=== PATIENT | male | born 1985 | race Caucasian/White ===

== ENCOUNTER 2018-03-30 03:11 | Emergency (ER) | payer SELFPAY ==
[2018-03-30 03:40] LABS: Absolute Lymphocytes (CBC) 2.7 K/uL (0.7-4.9); Absolute Monocytes 0.7 K/uL (0.1-1.3); Absolute Neutrophil 5.2 K/uL (1.8-8.0); Basophils % 0.6 % (0-1.3); Eosinophils % 2.4 % (0-4.4); Hematocrit 50.7 % (39.6-49.0); Lymphocytes % 30.6 % (15.3-44.8); MCH 29.4 pg (27.0-35.0); MCV 87.7 fL (80-100); MPV 8.1 fL (7.6-11.3); Monocytes % 8.1 % (3.3-12.3); RBC Red Blood Cell Count 5.78 M/uL (4.33-5.43)
[2018-03-30 03:47] LABS: Protime INR 0.88
[2018-03-30 03:53] LABS: Bicarbonate 27 mEq/L (21-31); Glucose Level 98 mg/dL (65-120); Potassium 3.3 mEq/L (3.6-5.0); Sodium Level 140 mEq/L (135-145)
[2018-03-30] MEDS ORDERED: THIAMINE 200 MG/2 ML INJ ONE (03:55)
[2018-03-30] MEDS ORDERED: LORAZEPAM 0.5 MG TABLET ONE (03:55)
[2018-03-30] MEDS ORDERED: MULTIVITAMINS 10 ML VIAL (INJ) IV ONE (03:57)
[2018-03-30] MEDS ORDERED: FOLIC ACID 5 MG/ML VIAL ONE (03:58)
[2018-03-30 03:59] LABS: ALT/SGPT 113 IU/L (10-60); AST/SGOT 111 IU/L (10-42); Albumin 4.2 g/dL (3.2-5.5); Alkaline Phosphatase 44 IU/L (42-121); BUN Blood Urea Nitrogen 6 mg/dL (6-20); Bilirubin Direct 0.1 mg/dL (0-0.2); Bilirubin Total 0.6 mg/dL (0.3-1.2); Protein, Total 7.7 g/dL (6.0-8.3)
[2018-03-30] MEDS ORDERED: NA CHLORIDE 0.9% 1,000 ML ONE (03:59)
[2018-03-30 04:00] LABS: Alcohol Serum/Plasma 212 mg/dl
[2018-03-30 05:01] LABS: Salicylates Level < 4.0 mg/dl (<30)
[2018-03-30 05:06] LABS: Barbiturates NEGATIVE; Benzodiazepines POSITIVE; Cocaine NEGATIVE; METHAMPHETAM NEGATIVE; Opiates NEGATIVE; Phencyclidine NEGATIVE; THC Cannibis POSITIVE
[2018-03-30 05:16] LABS: Urine Blood TRACE (NEG); Urine Glucose NEGATIVE (NEG); Urine Protein NEGATIVE (NEG); Urine pH 6.5 (5.0-7.0)
--- NOTE | 2018-03-30 05:31 | EDPHYS ---
Physician Documentation [facility] Name: Tommy Barnett III Age: 32 yrs Sex: Male : 1985 Arrival Date: 03/30/2018 Time: 03:14 Bed 16 Private MD: ED Physician Kalpesh Wu HPI: 03/30 04:22 This 32 yrs old Male presents to ER via EMS with complaints of Alcohol tw4 Withdrawal. 04:22 pt states he feels shaky. Onset: The symptoms/episode began/occurred today. Severity of tw4 symptoms: At their worst the symptoms were moderate in the emergency department the symptoms are unchanged. The patient has not experienced similar symptoms in the past. Historical: - Allergies: 03:21 Phenergan; ak1 - Home Meds: 03:21 None [Active]; ak1 - PMHx: 03:21 None; ak1 - PSHx: 03:21 chest tube; ak1 - Immunization history:: Adult Immunizations unknown. - Social history:: Smoking status: Patient uses tobacco products, smokes one pack cigarettes per day. ROS: 04:22 Constitutional: Negative for fever, chills, and weight loss, Cardiovascular: Negative tw4 for chest pain, palpitations, and edema, Respiratory: Negative for shortness of breath, cough, wheezing, and pleuritic chest pain, Abdomen/GI: Negative for abdominal pain, nausea, vomiting, diarrhea, and constipation, Back: Negative for injury and pain, Neuro: Negative for headache, weakness, numbness, tingling, and seizure. 04:22 Psych: Positive for alcohol dependence. Exam: 04:23 Constitutional: This is a well developed, well nourished patient who is awake, alert, tw4 and in no acute distress. Head/Face: Normocephalic, atraumatic. Chest/axilla: Normal chest wall appearance and motion. Nontender with no deformity. No lesions are appreciated. Cardiovascular: Regular rate and rhythm with a normal S1 and S2. No gallops, murmurs, or rubs. Normal PMI, no JVD. No pulse deficits. Respiratory: Lungs have equal breath sounds bilaterally, clear to auscultation and percussion. No rales, rhonchi or wheezes noted. No increased work of breathing, no retractions or nasal flaring. Abdomen/GI: Soft, non-tender, with normal bowel sounds. No distension or tympany. No guarding or rebound. No evidence of tenderness throughout. MS/ Extremity: Pulses equal, no cyanosis. Neurovascular intact. Full, normal range of motion. Neuro: Awake and alert, GCS 15, oriented to person, place, time, and situation. Cranial nerves II-XII grossly intact. Motor strength 5/5 in all extremities. Sensory grossly intact. Cerebellar exam normal. Normal gait. Vital Signs: 03:15 BP 132 / 103; Pulse 126; Resp 20; Temp 98; Pulse Ox 96% on R/A; Weight 89.81 kg (R); ak1 Height 5 ft. 6 in. (167.64 cm) (R); Pain 0/10; 04:45 BP 118 / 81; Pulse 109; Resp 18; Pulse Ox 98% on R/A; ea 05:42 BP 119 / 73; Pulse 100; Resp 21; Temp 98.0(O); Pulse Ox 96% on R/A; Pain 0/10; ak1 06:27 BP 127 / 78; Pulse 100; Resp 18; Pulse Ox 98% on R/A; Pain 0/10; ea 03:15 Body Mass Index 31.96 (89.81 kg, 167.64 cm) ak1 MDM: 03:15 Patient medically screened. tw4 05:31 Differential Diagnosis altered mental status. Data reviewed: vital signs, nurses notes. tw4 Data interpreted: Pulse oximetry: Interpretation: normal. Counseling: I had a detailed discussion with the patient and/or guardian regarding: the historical points, exam findings, and any diagnostic results supporting the discharge/admit diagnosis. Medication response: IVF , thiamine folic acid. Response to treatment: the patient's symptoms have markedly improved after treatment, and as a result, I will discharge patient. Special discussion: I discussed with the patient/guardian in detail that at this point there is no indication for admission to the hospital. It is understood, however, that if the symptoms persist or worsen the patient needs to return immediately for re-evaluation. ED course: Pt appears well, nontoxic, no hallucinations or delirium. 03/30 03:16 Order name: Acetaminophen [facility] 03/30 04:30 Interpretation: Within normal limits: ACETA < 10.0. 03/30 03:16 Order name: Basic Metabolic Panel [facility] 03/30 04:30 Interpretation: Normal except: K 3.3. [facility] 03/30 03:16 Order name: CBC with Diff; Complete Time: 04:[address] [facility] 03/30 04:30 Interpretation: Normal except: RBC 5.78; PLT 140; HCT 50.7. 03/30 03:16 Order name: ETOH Level [facility] 03/30 03:16 Order name: Hepatic Function [facility] 03/30 04:31 Interpretation: Normal except: SGOT 111; SGPT 113. [facility] 03/30 03:16 Order name: PT-INR; Complete Time: 04:[address] [facility] 03/30 04:30 Interpretation: Within normal limits: PT 10.4. [facility] 03/30 03:16 Order name: Ptt, Activated; Complete Time: 04:[address] [facility] 03/30 03:16 Order name: Salicylate [facility] 03/30 03:16 Order name: Urine Drug Screen [facility] 03/30 03:16 Order name: EKG - Nurse/Tech; Complete Time: 04:[address] [facility] 03/30 03:16 Order name: IV Saline Lock; Complete Time: 04:[address] [facility] 03/30 04:10 Order name: Urine Dipstick--Ancillary (enter results) [facility] 03/30 03:16 Order name: Labs collected and sent; Complete Time: 04:[address] [facility] 03/30 03:16 Order name: Urine Dipstick-Ancillary (obtain specimen); Complete Time: 04:09 EC:30 Rate is 113 beats/min. Rhythm is regular. QRS [place] is Normal. AR interval is normal. tw4 QRS interval is normal. QT interval is normal. No Q waves. T waves are Normal. No ST changes noted. Clinical impression: Sinus tachycardia. Interpreted by me. Reviewed by me. Administered Medications: 04:00 Drug: Banana Bag - (NS 0.9% 1000 ml, foLIC Acid 1 mg, Thiamine 100 mg, Multivitamin 1 ea amp) Route: IV; Rate: calculated rate; Site: right antecubital; 06:26 Follow up: IV Status: Completed infusion ak1 04:00 Drug: Ativan 0.5 mg Route: PO; ea 05:33 Follow up: Response: No adverse reaction ak1 Disposition: 03/30/18 05:29 Discharged to Home. Impression: Alcohol dependence with withdrawal, uncomplicated, Alcohol abuse. - Condition is Stable. - Discharge Instructions: Alcohol and Drug Addiction, Finding Treatment, Alcohol Withdrawal, Alcohol Use Disorder, Alcohol Withdrawal, [id number]. - Prescriptions for Klonopin 0.5 mg Oral Tablet - take 1 tablet by ORAL route every 12 hours As needed; 10 tablet. - Medication Reconciliation Form, Thank You Letter, Antibiotic Education, Prescription Opioid Use form. - Follow up: Private Physician; When: As needed; Reason: Recheck today's complaints, Continuance of care, Re-evaluation by your physician. - Problem is new. - Symptoms have improved. Signatures: Dispatcher [employer] EDMS Jennifer Phan RN RN ak1 Aure Granger RN Kalpesh Gonzalez ea, MD MD tw4 Corrections: (The following items were deleted from the chart) 06:35 05:29 03/30/2018 05:29 Discharged to Home. Impression: Alcohol dependence with ea withdrawal, uncomplicated; Alcohol abuse. Condition is Stable. Forms are Medication Reconciliation Form, Thank You Letter, Antibiotic Education, Prescription Opioid Use. Follow up: Private Physician; When: As needed; Reason: Recheck today's complaints, Continuance of care, Re-evaluation by your physician. Problem is new. Symptoms have improved. tw4
--- NOTE | 2018-03-30 05:31 | ER ---
Nurse's Notes [facility] Name: Tommy Barnett III Age: 32 yrs Sex: Male : 1985 Arrival Date: 03/30/2018 Time: 03:14 Bed 16 Private MD: Diagnosis: Alcohol dependence with withdrawal, uncomplicated;Alcohol abuse Presentation: 03/30 03:15 Presenting complaint: Patient states: ETOH abuse, pt concerned about possible seizure ak1 due to his "jittery"since 0130. pt has 1 litter vodka tonight. pt with hx seizures that he does not take medication for. Transition of care: patient was not received from another setting of care. Onset of symptoms was March 30, 2018. Risk Assessment: Do you want to hurt yourself or someone else? Patient reports no desire to harm self or others. Initial Sepsis Screen: Does the patient meet any 2 criteria? No. Patient's initial sepsis screen is negative. Does the patient have a suspected source of infection? No. Patient's initial sepsis screen is negative. Care prior to arrival: None. 03:15 Method Of Arrival: EMS: [facility] ak1 03:15 Acuity: JOY 3 ak1 Triage Assessment: 03:21 General: Appears in no apparent distress. Behavior is cooperative, anxious, Smells of ak1 alcohol. Pain: Denies pain. EENT: No signs and/or symptoms were reported regarding the EENT system. Neuro: Level of Consciousness is awake, alert, obeys commands, Oriented to person, place, time, situation. Cardiovascular: Rhythm is sinus tachycardia. Respiratory: No deficits noted. GI: No signs and/or symptoms were reported involving the gastrointestinal system. : No signs and/or symptoms were reported regarding the genitourinary system. Derm: No signs and/or symptoms reported regarding the dermatologic system. Musculoskeletal: No signs and/or symptoms reported regarding the musculoskeletal system. Historical: - Allergies: 03:21 Phenergan; ak1 - Home Meds: 03:21 None [Active]; ak1 - PMHx: 03:21 None; ak1 - PSHx: 03:21 chest tube; ak1 - Immunization history:: Adult Immunizations unknown. - Social history:: Smoking status: Patient uses tobacco products, smokes one pack cigarettes per day. Screenin:23 Abuse screen: Denies threats or abuse. Denies injuries from another. Nutritional ak1 screening: No deficits noted. Tuberculosis screening: No symptoms or risk factors identified. Fall Risk None identified. Assessment: 04:59 Reassessment: Patient and/or family updated on plan of care and expected duration. Pain ea level reassessed. Patient is alert, oriented x 3, equal unlabored respirations, skin warm/dry/pink. 05:43 Reassessment: Patient appears in no apparent distress at this time. Patient and/or ak1 family updated on plan of care and expected duration. Pain level reassessed. Patient is alert, oriented x 3, equal unlabored respirations, skin warm/dry/pink. no seizure activity noted while in ER16. Patient denies pain at this time. Patient states feeling better. 06:29 Reassessment: Patient and/or family updated on plan of care and expected duration. Pain ea level reassessed. Patient is alert, oriented x 3, equal unlabored respirations, skin warm/dry/pink. Discharge instruction given to patient, verbalized the understanding of instruction. Patient denies pain at this time. Patient states feeling better. 06:32 Reassessment: Patient is alert, oriented x 3, equal unlabored respirations, skin ea warm/dry/pink. Pt waiting for ride. Vital Signs: 03:15 BP 132 / 103; Pulse 126; Resp 20; Temp 98; Pulse Ox 96% on R/A; Weight 89.81 kg (R); ak1 Height 5 ft. 6 in. (167.64 cm) (R); Pain 0/10; 04:45 BP 118 / 81; Pulse 109; Resp 18; Pulse Ox 98% on R/A; ea 05:42 BP 119 / 73; Pulse 100; Resp 21; Temp 98.0(O); Pulse Ox 96% on R/A; Pain 0/10; ak1 06:27 BP 127 / 78; Pulse 100; Resp 18; Pulse Ox 98% on R/A; Pain 0/10; ea 03:15 Body Mass Index 31.96 (89.81 kg, 167.64 cm) ak1 ED Course: 03:14 Patient arrived in ED. ak1 03:15 Kalpesh Wu MD is Attending Physician. tw4 03:15 Arm band placed on Patient placed in an exam room, on a stretcher, on ekg monitor tech, ak1 on pulse oximetry, Patient notified of wait time. 03:18 Aure Granger, RN is Primary Nurse. ea 03:19 Triage completed. ak1 03:23 Patient has correct armband on for positive identification. Bed in low position. Call ak1 light in reach. Side rails up X 1. monitoring engineer on. Pulse ox on. NIBP on. 03:30 Inserted saline lock: 18 gauge in right antecubital area, using aseptic technique. ea Blood collected. 05:32 No provider procedures requiring assistance completed. ak1 06:30 IV discontinued, intact, bleeding controlled, No redness/swelling at site. Pressure ea dressing applied. Administered Medications: 04:00 Drug: Banana Bag - (NS 0.9% 1000 ml, foLIC Acid 1 mg, Thiamine 100 mg, Multivitamin 1 ea amp) Route: IV; Rate: calculated rate; Site: right antecubital; 06:26 Follow up: IV Status: Completed infusion ak1 04:00 Drug: Ativan 0.5 mg Route: PO; ea 05:33 Follow up: Response: No adverse reaction ak1 Outcome: 05:29 Discharge ordered by . tw4 05:43 Condition: stable ak1 06:30 Discharge instructions given to patient, Instructed on discharge instructions, follow ea up and referral plans. medication usage, Demonstrated understanding of instructions, follow-up care, medications, Prescriptions given X 1. 06:35 Patient left the ED. ea Signatures: Jennifer Phan RN SERGEY ak1 Aure Granger, RN Kalepsh Gonzalez ea, MD MD tw4
[2018-03-30 06:42] VITALS: TEMP 98
[2018-03-30 06:44] VITALS: BP 127/78; O2SAT 98
--- NOTE | 2018-03-30 12:28 | EKG ---
Test Date: 2018-03-30 Test Time: 04:17:55 Surtass Analyst: RAGHAVENDRA MEASUREMENT RESULTS: Intervals: Rate: 113 WI: 136 QRSD: 82 QT: 342 QTc: 469 [place]: P: 63 WI: 136 QRS: -30 T: 28 INTERPRETIVE STATEMENTS: Sinus tachycardia Left axis deviation Abnormal ECG Compared to ECG 03/30/2018 04:17:29 Left ventricular hypertrophy no longer present Electronically Signed On 03-30-18 12:27:41 CDT by Jack Heller
--- NOTE | 2018-03-30 12:28 | EKG ---
Test Date: 2018-03-30 Test Time: 04:17:29 Soda Flaker: RAGHAVENDRA MEASUREMENT RESULTS: Intervals: Rate: 113 NV: 150 QRSD: 82 QT: 338 QTc: 463 [place]: P: 59 NV: 150 QRS: -31 T: 25 INTERPRETIVE STATEMENTS: Sinus tachycardia Left axis deviation Minimal voltage criteria for LVH, may be normal variant Abnormal ECG Compared to ECG 03/30/2018 04:15:55 Left ventricular hypertrophy now present Electronically Signed On 03-30-18 12:27:45 CDT by Jack Heller
--- NOTE | 2018-03-30 12:28 | EKG ---
Test Date: 2018-03-30 Test Time: 04:15:55 Graduate Teaching Associate: RAGHAVENDRA MEASUREMENT RESULTS: Intervals: Rate: 112 CO: 132 QRSD: 82 QT: 342 QTc: 466 [place]: P: 62 CO: 132 QRS: -31 T: 29 INTERPRETIVE STATEMENTS: Sinus tachycardia Left axis deviation Abnormal ECG Compared to ECG 02/05/2003 12:33:00 Left-axis deviation now present Electronically Signed On 03-30-18 12:27:47 CDT by Jack Heller
== END 2018-03-30 06:35 | disposition home or self-care (01) ==
LOC: ER 03:11
DX: F10.230 Alcohol dependence with withdrawal, uncomplicated (principal); F17.210 Nicotine dependence, cigarettes, uncomplicated; Z88.8 Allergy status to other drugs, medicaments and biological substances
CPT/HCPCS: 36415; 80048; 80076; 80307; 80320; 80329; 81003; 85025; 85610; 85730; 93005; 96365; 96366; 99284; J3411; J7030

== ENCOUNTER 2019-02-03 20:24 | Emergency (ER) | payer SELFPAY ==
[2019-02-03] MEDS ORDERED: NA CHLORIDE 0.9% 1,000 ML ONE (22:13)
[2019-02-03] MEDS ORDERED: LORazepam 2 MG/ML VIAL ONE (22:13)
--- NOTE | 2019-02-04 00:08 | EDPHYS ---
Physician Documentation [facility] Name: Tommy Barnett III Age: 33 yrs Sex: Male : 1985 Arrival Date: 02/03/2019 Time: 20:27 Bed 15 Private MD: ED Physician Gregory Arguelles HPI: 02/04 00:03 This 33 yrs old Male presents to ER via Ambulatory with complaints of Alcohol gs Withdrawal. 00:03 Onset: The symptoms/episode began/occurred today. Associated signs and symptoms: gs Pertinent negatives: chest pain, fever, hallucinations, suicide ideation. Severity of symptoms: At their worst the symptoms were moderate in the emergency department the symptoms are unchanged. The patient has experienced similar episodes in the past, a few times. 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 - Social history:: Smoking status: Patient uses tobacco products, denies chronic smoking, but will smoke occasionally, Patient uses alcohol, patient/guardian reports recent binge of alcohol consumption. - Ebola Screening: : No symptoms or risks identified at this time. ROS: 02/04 00:03 All other systems are negative. gs Exam: 00:03 Head/Face: Normocephalic, atraumatic. Eyes: Pupils equal round and reactive to light, gs extra-ocular motions intact. Lids and lashes normal. Conjunctiva and sclera are non-icteric and not injected. Cornea within normal limits. Periorbital areas with no swelling, redness, or edema. ENT: Nares patent. No nasal discharge, no septal abnormalities noted. Tympanic membranes are normal and external auditory canals are clear. Oropharynx with no redness, swelling, or masses, exudates, or evidence of obstruction, uvula midline. Mucous membranes moist. Neck: Trachea midline, no thyromegaly or masses palpated, and no cervical lymphadenopathy. Supple, full range of motion without nuchal rigidity, or vertebral point tenderness. No Meningismus. Chest/axilla: Normal chest wall appearance and motion. Nontender with no deformity. No lesions are appreciated. Respiratory: Lungs have equal breath sounds bilaterally, clear to auscultation and percussion. No rales, rhonchi or wheezes noted. No increased work of breathing, no retractions or nasal flaring. Abdomen/GI: Soft, non-tender, with normal bowel sounds. No distension or tympany. No guarding or rebound. No evidence of tenderness throughout. Skin: Warm, dry with normal turgor. Normal color with no rashes, no lesions, and no evidence of cellulitis. MS/ Extremity: Pulses equal, no cyanosis. Neurovascular intact. Full, normal range of motion. Neuro: Awake and alert, GCS 15, oriented to person, place, time, and situation. Cranial nerves II-XII grossly intact. Motor strength 5/5 in all extremities. Sensory grossly intact. Cerebellar exam normal. Normal gait. 00:03 Back: No spinal tenderness. No costovertebral tenderness. Full range of motion. 00:03 Constitutional: The patient appears alert, awake, uncomfortable. 00:03 Cardiovascular: Rate: tachycardic, Rhythm: regular, Pulses: no pulse deficits are appreciated. Vital Signs: 02/03 20:42 BP 147 / 96; Pulse 140; Resp 18; Temp 99(O); Pulse Ox 96% on R/A; Weight 88.45 kg; lp1 Height 5 ft. 6 in. (167.64 cm); Pain 4/10; 21:31 BP 117 / 88; Pulse 131; Resp 22; Pulse Ox 97% on R/A; mt 22:30 BP 115 / 54; Pulse 115; Resp 16 S; Pulse Ox 97% on R/A; cc3 23:30 BP 114 / 69; Pulse 111; Resp 18 S; Pulse Ox 99% on R/A; cc3 02/04 00:00 BP 105 / 64; Pulse 111; Resp 20 S; Pulse Ox 96% on R/A; cc3 02/03 20:42 Body Mass Index 31.47 (88.45 kg, 167.64 cm) lp1 MDM: 02/03 21:51 Patient medically screened. gs 02/04 00:03 Data reviewed: vital signs, nurses notes. Response to treatment: the patient's symptoms gs have markedly improved after treatment, and as a result, I will discharge patient. Administered Medications: 02/03 22:00 Drug: NS 0.9% 1000 ml Route: IV; Rate: 1 bolus; Site: right antecubital; cc3 23:00 Follow up: Response: No adverse reaction; IV Status: Completed infusion; IV Intake: cc3 1000ml 22:02 Drug: Ativan 2 mg Route: IVP; Site: right antecubital; cc3 22:49 Follow up: Response: No adverse reaction; Anxiety decreased cc3 02/04 00:25 Drug: Valium 10 mg Route: PO; cc3 00:35 Follow up: Response: No adverse reaction cc3 Disposition: 02/04/19 00:06 Discharged to Home. Impression: Alcohol dependence with withdrawal. - Condition is Stable. - Discharge Instructions: Alcohol Withdrawal, [id number]. - Prescriptions for Valium 10 mg Oral Tablet - take 1 tablet by ORAL route every 12 hours As needed; 14 tablet. - Medication Reconciliation Form, Thank You Letter, Antibiotic Education, Prescription Opioid Use form. - Follow up: Private Physician; When: 2 - 3 days; Reason: Re-evaluation by your physician. Signatures: Dorita Henderson RN RN lp1 Gregory Arguelles MD MD Neva Maddox 3 Corrections: (The following items were deleted from the chart) 00:36 00:06 02/04/2019 00:06 Discharged to Home. Impression: Alcohol dependence with cc3 withdrawal. Condition is Stable. Forms are Medication Reconciliation Form, Thank You Letter, Antibiotic Education, Prescription Opioid Use. Follow up: Private Physician; When: 2 - 3 days; Reason: Re-evaluation by your physician.
--- NOTE | 2019-02-04 00:08 | ER ---
Nurse's Notes [facility] Name: Tommy Barnett III Age: 33 yrs Sex: Male : 1985 Arrival Date: 02/03/2019 Time: 20:27 Bed 15 Private MD: Diagnosis: Alcohol dependence with withdrawal Presentation: 02/03 20:40 Presenting complaint: Patient states: "I'm feeling very shaky, my whole insides feel lp1 like they're about to jump out"; Patient states he got kicked out of home and relapsed 3 weeks ago and has been drinking about a half gallon of Vodka a day; Last drank yesterday, 2 12 packs and a liter of Vodka. 20:40 Method Of Arrival: Ambulatory lp1 20:42 Transition of care: patient was not received from another setting of care. Onset of lp1 symptoms was February 03, 2019. Risk Assessment: Do you want to hurt yourself or someone else? Patient reports no desire to harm self or others. Initial Sepsis Screen: Does the patient meet any 2 criteria? No. Patient's initial sepsis screen is negative. Does the patient have a suspected source of infection? No. Patient's initial sepsis screen is negative. Care prior to arrival: None. 20:42 Acuity: JOY 2 lp1 Triage Assessment: 20:54 General: Appears in no apparent distress. uncomfortable, Behavior is cooperative, cc3 appropriate for age, anxious. Pain: Denies pain. EENT: No signs and/or symptoms were reported regarding the EENT system. Neuro: Level of Consciousness is awake, alert, obeys commands, Oriented to person, place, time, situation, Appropriate for age. Cardiovascular: Patient's skin is warm and dry. Respiratory: Airway is patent Respiratory effort is even, unlabored, Respiratory pattern is regular, symmetrical. GI: Abdomen is round non-distended. : No signs and/or symptoms were reported regarding the genitourinary system. Derm: No signs and/or symptoms reported regarding the dermatologic system. Musculoskeletal: Circulation, motion, and sensation intact. Range of motion: intact in all extremities. Historical: - Allergies: 20:44 Phenergan; lp1 - Home Meds: 20:44 Omeprazole Oral [Active]; lp1 - PMHx: 20:44 Non-hodgkins; lp1 - PSHx: 20:44 None; lp1 - Immunization history:: Adult Immunizations unknown. - Social history:: Smoking status: Patient uses tobacco products, denies chronic smoking, but will smoke occasionally, Patient uses alcohol, patient/guardian reports recent binge of alcohol consumption. - Ebola Screening: : No symptoms or risks identified at this time. Screenin:54 Abuse screen: Denies threats or abuse. Denies injuries from another. Nutritional cc3 screening: No deficits noted. Tuberculosis screening: No symptoms or risk factors identified. Fall Risk Ambulatory Aid- None/Bed Rest/Nurse Assist (0 pts). Gait- Normal/Bed Rest/Wheelchair (0 pts) Mental Status- Oriented to own ability (0 pts). Assessment: 20:54 General: see triage assessment. cc3 21:18 Reassessment: Patient appears in no apparent distress at this time. Patient and/or cc3 family updated on plan of care and expected duration. Pain level reassessed. Patient is alert, oriented x 3, equal unlabored respirations, skin warm/dry/pink. 22:26 Reassessment: Patient appears in no apparent distress at this time. Patient and/or cc3 family updated on plan of care and expected duration. Pain level reassessed. Patient is alert, oriented x 3, equal unlabored respirations, skin warm/dry/pink. 23:35 Reassessment: Patient appears in no apparent distress at this time. Patient and/or cc3 family updated on plan of care and expected duration. Pain level reassessed. Patient is alert, oriented x 3, equal unlabored respirations, skin warm/dry/pink. 02/04 00:32 Reassessment: Patient appears in no apparent distress at this time. Patient and/or cc3 family updated on plan of care and expected duration. Pain level reassessed. Patient is alert, oriented x 3, equal unlabored respirations, skin warm/dry/pink. Dr. Arguelles discharged the patient home with prescription given. IV cannula removed and patient left ER vitally stable and ambulatory with his friend. Patient denies pain at this time. Patient states feeling better. Patient states symptoms have improved. Vital Signs: 02/03 20:42 BP 147 / 96; Pulse 140; Resp 18; Temp 99(O); Pulse Ox 96% on R/A; Weight 88.45 kg; lp1 Height 5 ft. 6 in. (167.64 cm); Pain 4/10; 21:31 BP 117 / 88; Pulse 131; Resp 22; Pulse Ox 97% on R/A; mt 22:30 BP 115 / 54; Pulse 115; Resp 16 S; Pulse Ox 97% on R/A; cc3 23:30 BP 114 / 69; Pulse 111; Resp 18 S; Pulse Ox 99% on R/A; cc3 02/04 00:00 BP 105 / 64; Pulse 111; Resp 20 S; Pulse Ox 96% on R/A; cc3 02/03 20:42 Body Mass Index 31.47 (88.45 kg, 167.64 cm) lp1 ED Course: 02/03 20:27 Patient arrived in ED. es 20:42 Triage completed. lp1 20:42 Arm band placed on left wrist. lp1 20:54 Neva Maddox is Primary Nurse. cc3 20:54 Patient has correct armband on for positive identification. Bed in low position. Call cc3 light in reach. Side rails up X2. Seizure precautions initiated. property assessment monitor on. Pulse ox on. NIBP on. 21:30 EKG done, by ED staff, reviewed by Gregory Arguelles MD. Inserted saline lock: [address] right antecubital area, using aseptic technique. Blood collected. 21:37 Gregory Arguelles MD is Attending Physician. 02/04 00:32 No provider procedures requiring assistance completed. IV discontinued, intact, cc3 bleeding controlled, No redness/swelling at site. Pressure dressing applied. Administered Medications: 02/03 22:00 Drug: NS 0.9% 1000 ml Route: IV; Rate: 1 bolus; Site: right antecubital; cc3 23:00 Follow up: Response: No adverse reaction; IV Status: Completed infusion; IV Intake: cc3 1000ml 22:02 Drug: Ativan 2 mg Route: IVP; Site: right antecubital; cc3 22:49 Follow up: Response: No adverse reaction; Anxiety decreased cc3 02/04 00:25 Drug: Valium 10 mg Route: PO; cc3 00:35 Follow up: Response: No adverse reaction cc3 Intake: 02/03 23:00 IV: 1000ml; Total: 1000ml. cc3 Outcome: 02/04 00:06 Discharge ordered by stephania 00:33 Discharged to home ambulatory, with friend. cc3 00:33 Condition: stable 00:33 Discharge instructions given to patient, Instructed on discharge instructions, follow up and referral plans. medication usage, Demonstrated understanding of instructions, follow-up care, medications, Prescriptions given X 1. 00:36 Patient left the ED. cc3 Signatures: Guillermina Shi Laura, SERGEY RN lp1 Bharati Romo mt, Gregory, MD MD Neva Maddox cc3 Corrections: (The following items were deleted from the chart) 00:32 00:32 Reassessment: Patient appears in no apparent distress at this time. Patient cc3 and/or family updated on plan of care and expected duration. Pain level reassessed. Patient is alert, oriented x 3, equal unlabored respirations, skin warm/dry/pink. Dr. Arguelles discharged the patient home with prescription given. IV cannula removed and patient left ER vitally stable and ambulatory with his friend. cc3
[2019-02-04] MEDS ORDERED: DIAZEPAM 5 MG TABLET ONE (00:37)
[2019-02-04 02:17] VITALS: TEMP 99
[2019-02-04 02:21] VITALS: BP 105/64; O2SAT 96
--- NOTE | 2019-02-04 12:51 | EKG ---
Test Date: 2019-02-03 Test Time: 21:35:53 Aviation Technician: TONY MEASUREMENT RESULTS: Intervals: Rate: 131 [place]: 126 QRSD: 80 QT: 310 QTc: 457 [place]: P: 50 [place]: 126 QRS: -28 T: 29 INTERPRETIVE STATEMENTS: Sinus tachycardia Abnormal ECG Compared to ECG 03/30/2018 04:17:55 Left-axis deviation no longer present Electronically Signed On 02-04-19 12:50:41 CDT by Jack Heller
== END 2019-02-04 00:36 | disposition home or self-care (01) ==
LOC: ER 20:24
DX: F10.239 Alcohol dependence with withdrawal, unspecified (principal); Z72.0 Tobacco use; Z88.8 Allergy status to other drugs, medicaments and biological substances; Z85.72 Personal history of non-Hodgkin lymphomas
CPT/HCPCS: 93005; 96361; 96374; 99284; J7030

== ENCOUNTER 2019-02-13 01:02 | Emergency (ER) | payer SELFPAY ==
[2019-02-13 02:00] LABS: Absolute Lymphocytes (CBC) 3.8 K/uL (0.7-4.9); Absolute Monocytes 1.2 K/uL (0.1-1.3); Absolute Neutrophil 11.9 K/uL (1.8-8.0); Basophils % 0.5 % (0-1.3); Eosinophils % 1.2 % (0-4.4); Hematocrit 46.7 % (39.6-49.0); Lymphocytes % 22.1 % (15.3-44.8); MPV 8.9 fL (7.6-11.3); RBC Red Blood Cell Count 5.44 M/uL (4.33-5.43)
[2019-02-13 02:19] LABS: Albumin 4.5 g/dL (3.4-5.0); Bilirubin Direct 0.1 mg/dL (0-0.2); Bilirubin Total 0.5 mg/dL (0.2-1.0); Potassium 3.6 mmol/L (3.5-5.1); Protein, Total 8.3 g/dL (6.4-8.2)
[2019-02-13] MEDS ORDERED: ONDANSETRON 4 MG/2 ML VIAL ONE (02:54)
[2019-02-13] MEDS ORDERED: FAMOTIDINE 20 MG/2 ML VIAL IV ONE (02:54)
[2019-02-13] MEDS ORDERED: NA CHLORIDE 0.9% 1,000 ML ONE (02:54)
--- NOTE | 2019-02-13 04:05 | ER ---
Nurse's Notes [facility] Name: Tommy Barnett III Age: 33 yrs Sex: Male : 1985 Arrival Date: 02/13/2019 Time: 01:20 Bed 5 Private MD: Diagnosis: Epigastric pain;Vomiting Presentation: 02/13 01:36 Presenting complaint: Patient states: epigastric pain, N/V/D since 1999 after eating ak1 BBQ. Transition of care: patient was not received from another setting of care. Onset of symptoms was February 12, 2019. Risk Assessment: Do you want to hurt yourself or someone else? Patient reports no desire to harm self or others. Initial Sepsis Screen: Does the patient meet any 2 criteria? No. Patient's initial sepsis screen is negative. Does the patient have a suspected source of infection? No. Patient's initial sepsis screen is negative. Care prior to arrival: None. 01:36 Method Of Arrival: Ambulatory ak1 01:36 Acuity: JOY 3 ak1 Triage Assessment: 01:38 General: Appears in no apparent distress. Behavior is calm, cooperative. Pain: ak1 Complains of pain in epigastric area. EENT: No signs and/or symptoms were reported regarding the EENT system. Neuro: No deficits noted. Cardiovascular: No deficits noted. Respiratory: No deficits noted. GI: Abdomen is round Abd is soft X 4 quads Abdomen is tender to palpation in epigastric area Reports upper abdominal pain, diarrhea, nausea, vomiting, since 1999. : No signs and/or symptoms were reported regarding the genitourinary system. Derm: No signs and/or symptoms reported regarding the dermatologic system. Musculoskeletal: No signs and/or symptoms reported regarding the musculoskeletal system. Historical: - Allergies: 01:38 Phenergan; ak1 - Home Meds: 01:38 Omeprazole Oral [Active]; ak1 - PMHx: 01:38 Non-hodgkins; ak1 - PSHx: 01:38 port o cath placement; ak1 - Immunization history:: Adult Immunizations unknown. - Social history:: Smoking status: Patient/guardian denies using tobacco, Patient uses alcohol. - Ebola Screening: : No symptoms or risks identified at this time. Screenin:41 Abuse screen: Denies threats or abuse. Denies injuries from another. Nutritional ak1 screening: No deficits noted. Tuberculosis screening: No symptoms or risk factors identified. Fall Risk None identified. Assessment: 01:41 Reassessment: Patient appears in no apparent distress at this time. No changes from ak1 previously documented assessment. see triage assessment. 03:21 Reassessment: no vomiting, no diarrhea reported or noted while in ER5. pt resp even and ak1 unlabored. will continue to monitor. 03:23 GI: Bowel sounds present X 4 quads. ak1 04:05 Reassessment: Patient appears in no apparent distress at this time. No changes from ak1 previously documented assessment. Vital Signs: 01:38 BP 126 / 98; Pulse 109; Resp 18; Temp 98.2(O); Pulse Ox 98% on R/A; Weight 88.45 kg ak1 (R); Height 5 ft. 6 in. (167.64 cm) (R); Pain 8/10; 02:39 BP 106 / 72; Pulse 99; Resp 18; Pulse Ox 97% on R/A; ak1 03:22 BP 108 / 67; Pulse 80; Pulse Ox 97% on R/A; ak1 04:14 BP 104 / 64; Pulse 83; Resp 16; Temp 98.3; Pulse Ox 96% on R/A; ak1 01:38 Body Mass Index 31.47 (88.45 kg, 167.64 cm) ak1 ED Course: 01:20 Patient arrived in ED. es 01:33 Jatin Suárez NP is PHCP. pm1 01:33 Gregory Arguelles MD is Attending Physician. pm1 01:37 Triage completed. ak1 01:38 Arm band placed on Patient placed in an exam room, on a stretcher, on pulse oximetry, ak1 Patient notified of wait time. 01:41 Patient has correct armband on for positive identification. Bed in low position. Call ak1 light in reach. Side rails up X 1. Pulse ox on. NIBP on. 01:52 Inserted saline lock: 20 gauge in right antecubital area, using aseptic technique. lp1 Blood collected. By Sarah Meek, Student Nurse; Observed by Dorita Henderson RN. 02:39 Jennifer Phan RN is Primary Nurse. ak1 04:02 Iain Dee MD is Referral Physician. gs 04:05 No provider procedures requiring assistance completed. ak1 04:15 IV discontinued, intact, bleeding controlled, No redness/swelling at site. Pressure ak1 dressing applied. Administered Medications: 02:47 Drug: Zofran 4 mg Route: IVP; Site: right antecubital; ak1 02:58 Follow up: Response: No adverse reaction ak1 02:47 Drug: Pepcid 20 mg Route: IVP; Site: right antecubital; ak1 02:58 Follow up: Response: No adverse reaction ak1 02:48 Drug: NS 0.9% 1000 ml Route: IV; Rate: 1 bolus; Site: right antecubital; ak1 04:04 Follow up: IV Status: Completed infusion ak1 Outcome: 04:04 Discharge ordered by . gs 04:14 Discharged to home ambulatory. ak1 04:14 Condition: stable 04:14 Discharge instructions given to patient, Instructed on discharge instructions, follow up and referral plans. no drinking with medication, no driving heavy equipment, medication usage, Demonstrated understanding of instructions, follow-up care, medications, Prescriptions given X 2. 04:15 Patient left the ED. ak1 Signatures: Guillermina Shi Laura RN RN lp1 Jennifer Phan RN RN ak1 Jatin Suárez, INVESTIGATIVE AGENT INVESTIGATIVE AGENT pm1 Gregory Arguelles MD MD
--- NOTE | 2019-02-13 04:05 | EDPHYS ---
Physician Documentation [facility] Name: Tommy Barnett III Age: 33 yrs Sex: Male : 1985 Arrival Date: 02/13/2019 Time: 01:20 Bed 5 Private MD: ED Physician Gregory Arguelles HPI: 02/13 04:00 This 33 yrs old Male presents to ER via Ambulatory with complaints of gs Abdominal Pain. 04:00 The patient presents to the emergency department with nausea, vomiting. Onset: The gs symptoms/episode began/occurred acutely, just prior to arrival. Possible causes: bad food exposure. The symptoms are aggravated by nothing. The symptoms are alleviated by nothing. Associated signs and symptoms: Pertinent positives: abdominal pain, Pertinent negatives: fever. Severity of symptoms: At their worst the symptoms were moderate in the emergency department the symptoms are unchanged. The patient has experienced similar episodes in the past, a few times. Historical: - Allergies: 01:38 Phenergan; ak1 - Home Meds: 01:38 Omeprazole Oral [Active]; ak1 - PMHx: 01:38 Non-hodgkins; ak1 - PSHx: 01:38 port o cath placement; ak1 - Immunization history:: Adult Immunizations unknown. - Social history:: Smoking status: Patient/guardian denies using tobacco, Patient uses alcohol. - Ebola Screening: : No symptoms or risks identified at this time. ROS: 04:00 All other systems are negative. gs Exam: 04:00 Head/Face: Normocephalic, atraumatic. Eyes: Pupils equal round and reactive to light, gs extra-ocular motions intact. Lids and lashes normal. Conjunctiva and sclera are non-icteric and not injected. Cornea within normal limits. Periorbital areas with no swelling, redness, or edema. ENT: Nares patent. No nasal discharge, no septal abnormalities noted. Tympanic membranes are normal and external auditory canals are clear. Oropharynx with no redness, swelling, or masses, exudates, or evidence of obstruction, uvula midline. Mucous membranes moist. Neck: Trachea midline, no thyromegaly or masses palpated, and no cervical lymphadenopathy. Supple, full range of motion without nuchal rigidity, or vertebral point tenderness. No Meningismus. Chest/axilla: Normal chest wall appearance and motion. Nontender with no deformity. No lesions are appreciated. Cardiovascular: Regular rate and rhythm with a normal S1 and S2. No gallops, murmurs, or rubs. Normal PMI, no JVD. No pulse deficits. Respiratory: Lungs have equal breath sounds bilaterally, clear to auscultation and percussion. No rales, rhonchi or wheezes noted. No increased work of breathing, no retractions or nasal flaring. Back: No spinal tenderness. No costovertebral tenderness. Full range of motion. Skin: Warm, dry with normal turgor. Normal color with no rashes, no lesions, and no evidence of cellulitis. MS/ Extremity: Pulses equal, no cyanosis. Neurovascular intact. Full, normal range of motion. Neuro: Awake and alert, GCS 15, oriented to person, place, time, and situation. Cranial nerves II-XII grossly intact. Motor strength 5/5 in all extremities. Sensory grossly intact. Cerebellar exam normal. Normal gait. 04:00 Constitutional: The patient appears alert, awake, uncomfortable. 04:00 Abdomen/GI: Inspection: abdomen appears normal, Palpation: mild abdominal tenderness, in the epigastric area, rebound tenderness, is not appreciated. Vital Signs: 01:38 BP 126 / 98; Pulse 109; Resp 18; Temp 98.2(O); Pulse Ox 98% on R/A; Weight 88.45 kg ak1 (R); Height 5 ft. 6 in. (167.64 cm) (R); Pain 8/10; 02:39 BP 106 / 72; Pulse 99; Resp 18; Pulse Ox 97% on R/A; ak1 03:22 BP 108 / 67; Pulse 80; Pulse Ox 97% on R/A; ak1 04:14 BP 104 / 64; Pulse 83; Resp 16; Temp 98.3; Pulse Ox 96% on R/A; ak1 01:38 Body Mass Index 31.47 (88.45 kg, 167.64 cm) ak1 MDM: 01:43 Patient medically screened. gs 04:00 Differential diagnosis: gastritis, viral gastroenteritis, gastroenteritis. Data gs reviewed: vital signs, nurses notes, diagnostic data from outside facility, old medical records, lab test result(s). Response to treatment: the patient's condition has returned to base line, patient is well hydrated. tolerated po. 02/13 01:37 Order name: Hepatic Function; Complete Time: 02: 02/13 01:37 Order name: Basic Metabolic Panel; Complete Time: 02: 02/13 01:37 Order name: CBC with Diff; Complete Time: 02: 02/13 01:37 Order name: Lipase; Complete Time: 02: 02/13 01:37 Order name: IV Saline Lock; Complete Time: :53 02/13 01:37 Order name: Labs collected and sent; Complete Time: :53 Administered Medications: 02:47 Drug: Zofran 4 mg Route: IVP; Site: right antecubital; ak1 02:58 Follow up: Response: No adverse reaction ak1 02:47 Drug: Pepcid 20 mg Route: IVP; Site: right antecubital; ak1 02:58 Follow up: Response: No adverse reaction ak1 02:48 Drug: NS 0.9% 1000 ml Route: IV; Rate: 1 bolus; Site: right antecubital; ak1 04:04 Follow up: IV Status: Completed infusion ak1 Disposition: 02/13/19 04:04 Discharged to Home. Impression: Epigastric pain, Vomiting. - Condition is Stable. - Discharge Instructions: Abdominal Pain, Adult. - Prescriptions for Pepcid 20 mg Oral Tablet - take 1 tablet by ORAL route every 12 hours .; 30 tablet. Zofran 4 mg Oral Tablet - take 1 tablet by ORAL route every 12 hours As needed; 10 tablet. - Medication Reconciliation Form, Thank You Letter, Antibiotic Education, Prescription Opioid Use form. - Follow up: Iain Dee MD; When: 2 - 3 days; Reason: Re-evaluation by your physician. Signatures: Dispatcher [employer] Jennifer Phan RN RN ak1 Gregory Arguelles MD MD Corrections: (The following items were deleted from the chart) 04:15 04:04 02/13/2019 04:04 Discharged to Home. Impression: Epigastric pain; Vomiting. ak1 Condition is Stable. Forms are Medication Reconciliation Form, Thank You Letter, Antibiotic Education, Prescription Opioid Use. Follow up: Iain Dee; When: 2 - 3 days; Reason: Re-evaluation by your physician.
[2019-02-13 04:24] VITALS: BP 104/64; TEMP 98.3; O2SAT 96
== END 2019-02-13 04:15 | disposition home or self-care (01) ==
LOC: ER 01:02
DX: R10.13 Epigastric pain (principal); R11.2 Nausea with vomiting, unspecified; C85.90 Non-Hodgkin lymphoma, unspecified, unspecified site
CPT/HCPCS: 36415; 80048; 80076; 83690; 85025; 96361; 96374; 96375; 99284; J2405; J7030

== ENCOUNTER 2019-03-15 11:34 | Emergency (ER) | payer SELFPAY ==
[2019-03-15] MEDS ORDERED: LIDOCAINE 1% W/EPI 1:100,000 MDV 50 ML VIAL ONE (11:58)
--- NOTE | 2019-03-15 12:13 | ER ---
Nurse's Notes [facility] Name: Tommy Barnett III Age: 33 yrs Sex: Male : 1985 Arrival Date: 03/15/2019 Time: 11:35 Bed 15 Private MD: Diagnosis: Cutaneous abscess of buttock Presentation: 03/15 11:40 Presenting complaint: Patient states: i have this abscess in my tailbone for a while hj now, its getting bigger and hot but not bleeding, or does have any discharge; denies F/C;. Transition of care: patient was not received from another setting of care. Onset of symptoms was March 15, 2019. Risk Assessment: Do you want to hurt yourself or someone else? Patient reports no desire to harm self or others. Initial Sepsis Screen: Does the patient meet any 2 criteria? Yes Does the patient have a suspected source of infection? Yes: Skin breakdown/wound. Care prior to arrival: None. 11:40 Method Of Arrival: Ambulatory 11:40 Acuity: JOY 3 hj Triage Assessment: 11:44 General: Appears in no apparent distress. uncomfortable, Behavior is calm, cooperative, hj appropriate for age. Pain: Complains of pain in coccyx. 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 - Social history:: Smoking status: Patient uses tobacco products, Patient uses alcohol. - Ebola Screening: : Patient negative for fever greater than or equal to 101.5 degrees Fahrenheit, and additional compatible Ebola Virus Disease symptoms Patient denies exposure to infectious person Patient denies travel to an Ebola-affected area in the 21 days before illness onset. Screenin:43 Abuse screen: Denies threats or abuse. Denies injuries from another. Nutritional hj screening: No deficits noted. Tuberculosis screening: No symptoms or risk factors identified. Fall Risk None identified. Vital Signs: 11:43 BP 150 / 104; Pulse 118; Resp 18; Temp 98.8(O); Pulse Ox 100% on R/A; Weight 88.45 kg; hj Height 5 ft. 6 in. (167.64 cm); 11:43 Body Mass Index 31.47 (88.45 kg, 167.64 cm) hj ED Course: 11:35 Patient arrived in ED. as 11:37 Gregory Arguelles MD is Attending Physician. gs 11:37 Terrance Cervantes, RN is Primary Nurse. hj 11:41 Triage completed. hj 11:45 Arm band placed on right wrist. hj 11:45 Patient has correct armband on for positive identification. Placed in gown. Bed in low hj position. Call light in reach. Side rails up X 1. 12:33 No provider procedures requiring assistance completed. Patient did not have IV access hj during this emergency room visit. Administered Medications: 11:59 Drug: Lidocaine-Epinephrine -1%: (1:100,000) 20 ml Volume: 20 ml; Route: Infiltration; hj Outcome: 12:13 Discharge ordered by MD. gs 12:33 Discharged to home ambulatory. hj 12:33 Condition: stable 12:33 Discharge instructions given to patient, Instructed on discharge instructions, medication usage, Demonstrated understanding of instructions, follow-up care, Prescriptions given X 1. 12:34 Patient left the ED. hj Signatures: Breanne Villaseñor as Terrance Cervantes RN RN Gregory Arguelles MD MD Corrections: (The following items were deleted from the chart) 11:44 11:43 BP 150 / 104; Pulse 118bpm; Resp 18bpm; Pulse Ox 100% RA; Temp 97.9F Oral; hj hj 11:47 11:43 BP 150 / 104; Pulse 118bpm; Resp 18bpm; Pulse Ox 100% RA; Temp 97.9F Oral; 88.45 hj kg; Height 5 ft. 6 in.; BMI: 31.4; hj
--- NOTE | 2019-03-15 12:14 | EDPHYS ---
Physician Documentation [facility] Name: Tommy Barnett III Age: 33 yrs Sex: Male : 1985 Arrival Date: 03/15/2019 Time: 11:35 Bed 15 Private MD: ED Physician Gregory Arguelles HPI: 03/15 12:05 This 33 yrs old Male presents to ER via Ambulatory with complaints of Abscess.gs 12:05 The patient presents with an abscess of the coccyx. Description: The affected area is gs small, confluent, fluctuant. Onset: The symptoms/episode began/occurred 1 week(s) ago. Associated signs and symptoms: Pertinent negatives: drainage, fever. Modifying factors: the symptoms are alleviated by nothing, the symptoms are aggravated by touching. Severity of symptoms: At their worst the symptoms were moderate, in the emergency department the symptoms are unchanged. The patient has not experienced similar symptoms in the past. 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 - Social history:: Smoking status: Patient uses tobacco products, Patient uses alcohol. - Ebola Screening: : Patient negative for fever greater than or equal to 101.5 degrees Fahrenheit, and additional compatible Ebola Virus Disease symptoms Patient denies exposure to infectious person Patient denies travel to an Ebola-affected area in the 21 days before illness onset. ROS: 12:05 All other systems are negative. gs Exam: 12:05 Head/Face: Normocephalic, atraumatic. Cardiovascular: Regular rate and rhythm with a gs normal S1 and S2. No gallops, murmurs, or rubs. Normal PMI, no JVD. No pulse deficits. Respiratory: Lungs have equal breath sounds bilaterally, clear to auscultation and percussion. No rales, rhonchi or wheezes noted. No increased work of breathing, no retractions or nasal flaring. Abdomen/GI: Soft, non-tender, with normal bowel sounds. No distension or tympany. No guarding or rebound. No evidence of tenderness throughout. Back: No spinal tenderness. No costovertebral tenderness. Full range of motion. Neuro: Awake and alert, GCS 15, oriented to person, place, time, and situation. Cranial nerves II-XII grossly intact. Motor strength 5/5 in all extremities. Sensory grossly intact. Cerebellar exam normal. Normal gait. 12:05 Constitutional: The patient appears alert, awake. 12:05 Constitutional: The patient appears uncomfortable. 12:05 Skin: abscess, that is small, of the buttocks, with fluctuance, that is mild, with induration. Vital Signs: 11:43 BP 150 / 104; Pulse 118; Resp 18; Temp 98.8(O); Pulse Ox 100% on R/A; Weight 88.45 kg; Height 5 ft. 6 in. (167.64 cm); 11:43 Body Mass Index 31.47 (88.45 kg, 167.64 cm) Procedures: 12:05 I \T\ D: Incision and drainage was performed for an abscess of the pilonidal cyst Prepped gs with Betadine, Anesthetized with 5 ml's 1% Lidocaine w/ Epi. Incised with #15 blade. Drained small amount purulent fluid. Dressing: sterile 4x4 gauze, the patient tolerated the procedure well. MDM: 11:43 Patient medically screened. 12:05 Differential diagnosis: abscess. Data reviewed: vital signs, nurses notes. Administered Medications: 11:59 Drug: Lidocaine-Epinephrine -1%: (1:100,000) 20 ml Volume: 20 ml; Route: Infiltration; Disposition: 03/15/19 12:13 Discharged to Home. Impression: Cutaneous abscess of buttock. - Condition is Stable. - Discharge Instructions: Skin Abscess. - Prescriptions for Clindamycin HCl 150 mg Oral Capsule - take 1 capsule by ORAL route every 6 hours for 7 days; 28 capsule. - Medication Reconciliation Form, Thank You Letter, Antibiotic Education, Prescription Opioid Use form. - Follow up: Private Physician; When: 2 - 3 days; Reason: Re-evaluation by your physician. Signatures: Terrance Cervantes RN RN Gregory Arguelles MD MD Corrections: (The following items were deleted from the chart) 12:34 12:13 03/15/2019 12:13 Discharged to Home. Impression: Cutaneous abscess of buttock. Condition is Stable. Forms are Medication Reconciliation Form, Thank You Letter, Antibiotic Education, Prescription Opioid Use. Follow up: Private Physician; When: 2 - 3 days; Reason: Re-evaluation by your physician. gs
[2019-03-15 12:40] VITALS: BP 150/104; TEMP 98.8; O2SAT 100
== END 2019-03-15 12:34 | disposition home or self-care (01) ==
LOC: ER 11:34
PROC: 0H98XZZ Drainage of Buttock Skin, External Approach (ICD-10-PCS; principal; 2019-03-15)
DX: L02.31 Cutaneous abscess of buttock (principal); Z85.72 Personal history of non-Hodgkin lymphomas; Z72.0 Tobacco use; Z88.8 Allergy status to other drugs, medicaments and biological substances
CPT/HCPCS: 99283